=== PATIENT | female | born 1945 | race Caucasian/White ===

== ENCOUNTER 2021-04-11 12:41 | Observation (INO) ==
[~2021-04-11 12:41] MED LIST: Buffered Lidocaine 1% SYRIN 1 ml INTRADERM ONE; Lactated Ringers 1000 ml BAG 1,000 ML IV SCH
[2021-04-11] MEDS ORDERED: ceFAZolin 2 GM in NS PREMIX 2 GM/100 ML BAG IVPB ONE (13:08)
[2021-04-11] MEDS ORDERED: Midazolam 2 mg/2 ml VIAL 1 mg/ml 2 ml VIAL (2 mg) ONE (13:28)
[2021-04-11] MEDS ORDERED: Phenylephrine IV 10 MG/ML 1 ml VIAL ONE (13:32)
[2021-04-11] MEDS ORDERED: Bupivacaine 0.5% SDV PF 30ML VIAL ONE (13:39)
[2021-04-11] MEDS ORDERED: ROPIVACAINE 5 MG/ML 30 ML BTL (0.5%) ONE (15:31)
[2021-04-11] MEDS ORDERED: Ondansetron ODT 4 mg TAB 4 MG TAB PO PRN (16:30)
[2021-04-11] MEDS ORDERED: Morphine 2 MG/ML SYRINGE IV PRN (16:30)
[2021-04-11] MEDS ORDERED: diPHENhydraMINE IV 50 MG/ML 1 ml VIAL (BENADRYL) IV PRN (16:30)
[2021-04-11] MEDS ORDERED: diPHENhydraMINE 25 mg TAB PO PRN (16:30)
[2021-04-11] MEDS ORDERED: Magnesium Hydroxide LIQ 30 ML UDC PO PRN (16:30)
[2021-04-11] MEDS ORDERED: Lactulose 30 ml UDC PO PRN (16:30)
[2021-04-11] MEDS ORDERED: Ondansetron 4 mg VIAL 2 MG/ML 2 ml VIAL IV PRN ×2 (16:30→17:07)
[2021-04-11] MEDS ORDERED: ceFAZolin 1 GM ADVAN 1 GM in NS 0.9% 50 ML 50 ML IVPB SCH (17:00)
[2021-04-11] MEDS ORDERED: Lactated Ringers 1000 ml BAG 1,000 ML IV SCH (17:00)
[2021-04-11] MEDS ORDERED: Naloxone 0.4 mg VIAL 0.4 mg/ml 1 ml VIAL IV PRN (17:07)
[2021-04-11] MEDS ORDERED: HYDROmorphone 1 MG/1 ML SYRINGE IV PRN (17:07)
[2021-04-11] MEDS ORDERED: fentaNYL 100 mcg/2 ml 50 MCG/ML VIAL IV PRN (17:07)
[2021-04-11] MEDS: Magnesium Hydroxide LIQ 30 ML UDC PO SCH (21:51)
[2021-04-12] MEDS: ceFAZolin 1 GM ADVAN 1 GM in NS 0.9% 50 ML 50 ML IVPB SCH ×3 (00:07→15:48)
[2021-04-12 06:07] LABS: Hematocrit 34 % (35-47); Hemoglobin 11.8 g/dL (12.0-16.0); Mean Platelet Volume 6.8 fL (7.4-10.4); Platelet Count 166 10^3/uL (150-450)
[2021-04-12 06:30] LABS: Calcium 8.2 mg/dL (8.6-10.3); Potassium 3.9 mmol/L (3.5-5.0)
[2021-04-12] MEDS ORDERED: Vitamin THERAPEUTIC TAB PO SCH (09:00)
[2021-04-12] MEDS: Magnesium Hydroxide LIQ 30 ML UDC PO SCH (09:02)
[2021-04-12 15:53] VITALS: BP 112/59
[2021-04-13] MEDS ORDERED: Estradiol VAGINAL TAB (NF) 10 MCG VAG.TAB VAGINAL SCH (09:00)
== END 2021-04-12 16:40 | disposition home or self-care (01) ==
LOC: SSU 12:41 → OR 12:41
PROVIDERS: ADMIT Orthopaedic Surgery Adult Reconstructive Orthopaedic Surgery; ATTEND Orthopaedic Surgery Adult Reconstructive Orthopaedic Surgery